=== PATIENT | male | born 1960 ===

== ENCOUNTER 2023-07-13 05:40 | Inpatient (IN) | payer OTHER ==
[2023-07-05 11:43] LABS: HEMATOCRIT 43.6 % (39.0-48.0); MEAN CELL VOLUME 90.1 fL (80.0-100.00); MEAN CORPUSCULAR HGB CONC 34.4 g/dl (32.0-36.0); PLATELET COUNT 259 K/uL (150-450); RED BLOOD COUNT 4.84 M/uL (4.00-6.00)
[2023-07-05 11:48] LABS: URINE APPEARANCE Clear; URINE BILIRRUBIN Negative (NEGATIVE); URINE BLOOD Negative; URINE COLOR Dark Yellow; URINE GLUCOSE Negative (NEGATIVE); URINE LEUKOCYTE Trace; URINE NITRATE Negative; URINE PROTEIN Negative (NEGATIVE)
[2023-07-05 11:56] LABS: URINE BACTERIA 7.5 uL (0.0-1933); URINE EPITHELIAL CELLS 1.8 uL (0.0-38.8)
[2023-07-05 12:03] LABS: URINE WBC 0.7 uL (0.0-23.2)
[2023-07-05 12:09] LABS: ALBUMIN 3.4 gm/dL (3.4-5.0); BILIRUBIN TOTAL 0.63 mg/dL (0.3-1.2); CALCIUM 9.1 mg/dL (8.5-10.1); CREATININE SERUM 0.76 mg/dL (0.70-1.30); GFR 102.93; GLOBULINA 3.9 G/DL (2.4-3.5); POTASSIUM 4.28 mEq/L (3.5-5.1); TOTAL PROTEIN 7.3 gm/dL (6.4-8.2)
[2023-07-05 12:13] LABS: PARTIAL THROMBOPLASTIN TIME 29.2 SECONDS (22.0-34.0); PROTHROMBIN TIME 10.5 SECONDS (9.0-11.5)
[2023-07-05 13:32] LABS: PHOSPHOROUS 3.9 mg/dL (2.5-4.9)
[2023-07-13] MEDS ORDERED: METRONIDAZOLE/SODIUM CHLORIDE 500 MG/100 ML PIGGYBACK IV ONE (06:05)
[2023-07-13] MEDS ORDERED: CEFTRIAXONE SODIUM 2,000 MG VIAL ONE (06:05)
[2023-07-13] MEDS ORDERED: LIDOCAINE HCL/EPINEPHRINE 10MG/ML 1% 50ML IJ ONE ×2 (07:11→08:30)
[2023-07-13] MEDS ORDERED: BUPIVACAINE HCL 250MG/50ML VIAL ONE (07:11)
[2023-07-13] MEDS ORDERED: HEMOSTATIC MATRIX 1 KIT KIT TOP ONE ×2 (07:12→08:30)
[2023-07-13] MEDS ORDERED: DIBUCAINE 30 GM TUBE ONE (07:12)
[2023-07-13] MEDS ORDERED: POVIDONE-IODINE 118 ML BOTT TOP ONE (07:13)
[2023-07-13] MEDS ORDERED: TRAM1TAB98 PO (07:48)
[2023-07-13] MEDS ORDERED: COLACE100 MG PO (07:48)
[2023-07-13] MEDS ORDERED: CEFTRIAXONE SODIUM 2,000 MG VIAL IV SCH (08:30)
[2023-07-13] MEDS ORDERED: BUPIVACAINE HCL 250MG/50ML VIAL IJ ONE (08:30)
[2023-07-13] MEDS ORDERED: METRONIDAZOLE/SODIUM CHLORIDE 500 MG/100 ML PIGGYBACK IV SCH (08:30)
[2023-07-13] MEDS ORDERED: DIBUCAINE 30 GM TUBE RECTAL ONE (08:30)
[2023-07-13] MEDS ORDERED: MORPHINE SULFATE 4 MG/ML VIAL IV PRN (14:30)
[2023-07-13] MEDS ORDERED: DEXTROSE 5 %-0.45 % SOD CHLORD 1,000 ML IV SCH (14:30)
[2023-07-13] MEDS ORDERED: 0.9 % SODIUM CHLORIDE 1,000 ML IV SCH (20:00)
[2023-07-13] MEDS ORDERED: FAMOTIDINE/PF 20 MG/2 ML VIAL IV SCH (21:00)
[2023-07-14 06:31] LABS: HEMATOCRIT 42.5 % (39.0-48.0); HEMOGLOBIN 14.6 g/dL (13-16.00); MEAN CELL VOLUME 88.9 fL (80.0-100.00); MEAN CORPUSCULAR HEMOGLOBIN 30.5 pg (27.00-32.0); MEAN CORPUSCULAR HGB CONC 34.3 g/dl (32.0-36.0); PLATELET COUNT 208 K/uL (150-450); RED BLOOD COUNT 4.79 M/uL (4.00-6.00); RED CELL DISTRIBUTION WIDTH 13.8 % (11.5-14.5)
[2023-07-14] MEDS ORDERED: INSULIN LISPRO 1,000 UNIT/10 ML UNITS SUBCUTANEO PRN (13:45)
[2023-07-14] MEDS ORDERED: ENALAPRILAT DIHYDRATE 1.25 MG/ML VIAL IV PRN (13:45)
[2023-07-14] MEDS ORDERED: DEXTROSE 50 % IN WATER 0.5 G/ML DISP.SYRIN IV PRN (13:45)
[2023-07-14] MEDS ORDERED: NEURONTIN300 MG PO (16:11)
== END 2023-07-14 17:25 | disposition home or self-care (01) | DRG 349 ==
LOC: CIR.AMB 05:40 → O/R 16:04 → SURH 16:06
PROVIDERS: ADMIT Surgery; ATTEND Surgery
PROC: 3E0T3BZ Introduction of Anesthetic Agent into Peripheral Nerves and Plexi, Percutaneous Approach (ICD-10-PCS; 2023-07-13)
PROC: 0DBP7ZZ Excision of Rectum, Via Natural or Artificial Opening (ICD-10-PCS; principal; 2023-07-13 10:15)
DX: D12.8 Benign neoplasm of rectum (principal); K62.82 Dysplasia of anus; Z20.822 Contact with and (suspected) exposure to COVID-19